=== PATIENT | female | born 1955 | race Caucasian/White ===

== ENCOUNTER 2019-07-25 12:16 | Day surgery (SDC) | payer OTHER ==
[2019-07-24 12:39] VITALS: BMI 47.5
[2019-07-25 15:57] LABS: #Basophils 0.1 thou/uL (0.0-0.2); #Eosinphils 0.2 thou/uL (0.0-0.7); #Lymphocytes 3.1 thou/uL (1.20-3.40); #Monocytes 0.9 thou/uL (0.11-0.59); #Neutrophils 10.3 thou/uL (1.40-6.50); %Basophils 0.3 % (0.0-1.0); %Eosinophils 1.4 % (0.0-10.0); %Lymphocytes 21.5 % (21.0-51.0); %Monocytes 6.5 % (0.0-10.0); %Neutrophils 70.3 % (42.0-75.0); Hemoglobin 10.5 g/dL (12.0-16.0); Mean Corpuscular HGB CONC 33.2 g/dL (32.0-36.0); Mean Corpuscular Hemoglobin 28.1 pg (27.0-31.0); Mean Corpuscular Volume 84.8 fL (78.0-98.0); Mean Platelet Volume 6.4 fL (7.4-10.4); Platelet Count 381 thou/uL (130-400); Red Blood Cell (RBC) Count 3.73 mill/uL (4.20-5.40); White Blood Cell (WBC) Count 14.6 thou/uL (4.8-10.8)
[2019-07-25 16:17] LABS: ALT (SGPT) 16 U/L (8-55); AST (SGOT) 15 U/L (5-34); Alkaline Phosphatase 77 U/L (40-110); Anion Gap 14 mmol/L (10-20); BUN (Urea Nitrogen) 10 mg/dL (9.8-20.1); Bilirubin, Total 0.3 mg/dL (0.2-1.2); Calc. Creatinine Clearance 125 mL/min (70-130); Carbon Dioxide 27 mmol/L (23-31); Chloride 104 mmol/L (98-107); Estimated GFR-MDRD 66; Globulin 2.7 g/dL (2.4-3.5); Glucose 106 mg/dL (80-115); Potassium 3.6 mmol/L (3.5-5.1); Protein, Total 6.7 g/dL (6.0-8.3); Sodium 141 mmol/L (136-145)
--- NOTE | 2019-07-25 17:37 | OP ---
DATE OF PROCEDURE: 07/25/2019 PROCEDURE PERFORMED: Colonoscopy with biopsy. PREPROCEDURE DIAGNOSIS: History of colon polyps, last colonoscopy in 2012 to 2013. POSTPROCEDURE DIAGNOSES: 1. Exam to proximal ascending colon, adequate bowel preparation. 2. Diffusely redundant colon; not able to completely visualize the cecum. 3. Nearly 4 cm long exophytic ulcerated mass in the distal sigmoid colon, biopsied. 4. Small internal hemorrhoids. 5. Otherwise normal colonoscopy. PROCEDURE IN DETAIL: Written informed consent was obtained. Upon completion of the EGD, the patient was repositioned for the colonoscopy. Total intravenous anesthesia was administered by Dr. Yun and associates. The patient was placed in the left lateral decubitus position. A digital rectal exam was performed that was unremarkable. A Pentax video colonoscope was inserted through the anal canal and advanced carefully under direct visualization to the proximal ascending colon. The colon was diffusely redundant. The bowel preparation was adequate with a moderate amount of thick, opaque light brown stool coating most of the colonic mucosa. Much of it was washed away with copious irrigation and suctioning. Due to the colon redundancy, the cecum was not completely examined. Endoscopic findings revealed a nearly 4 cm long exophytic ulcerated friable mass in the distal sigmoid colon from 23 cm down to 19 cm from the anal verge. The appearance was consistent with a sigmoid colon cancer. Multiple biopsies were obtained for histology. No colonic polyps were identified. In the rectum, a retroflexed view demonstrated small nonbleeding internal hemorrhoids. The colon was decompressed as the colonoscope was removed from the patient. She was transferred to the Day Stay surgery area for postprocedure monitoring. There were no immediate complications. RECOMMENDATIONS: 1. Await biopsy results. 2. Ask the patient to call me in 5 to 6 days for biopsy results. 3. Low-residue diet. 4. Surgical consultation. 5. Obtain blood work and CT scan of the abdomen and pelvis. 6. Pending surgery recommendations, we will likely require a repeat colonoscopy in 1 year. Job ID: [id number]
--- NOTE | 2019-07-25 21:44 | OP ---
DATE OF PROCEDURE: 07/25/2019 PROCEDURE PERFORMED: Esophagogastroduodenoscopy with biopsy. PREPROCEDURE DIAGNOSIS: Epigastric pain. POSTPROCEDURE DIAGNOSES: 1. Exam to second portion of duodenum. 2. Normal-appearing esophagus. 3. Mild patchy erythema involving the gastric body and antrum, biopsied. 4. Normal duodenum. 5. No evidence of gastric or duodenal ulcers. PROCEDURE IN DETAIL: Written informed consent was obtained. The patient was brought to the endoscopy suite. Total intravenous anesthesia was administered by Dr. Yun and brian. The patient was placed in the left lateral decubitus position. A bite block was inserted into the mouth. The Pentax video diagnostic gastroscope was introduced into the oral cavity and the esophagus was carefully intubated. The gastroscope was advanced under direct visualization to the second portion of the duodenum. Endoscopic findings revealed a grossly normal appearing esophagus with overall normal motility. The stomach was entered and carefully examined. This included a retroflex view of the cardia and fundus. Mild patchy erythema was noted in the gastric body and antrum and biopsies were obtained for histology. No ulcer was identified. There was no evidence of active bleeding from the gastritis. Examination of the duodenum from the bulb to the second portion was unremarkable. The stomach was decompressed as the endoscope was completely removed from the patient. She was repositioned for the colonoscopy. There were no immediate complications. RECOMMENDATIONS: 1. Await pathology results. 2. Ask the patient to call me in one week for pathology results. 3. Continue omeprazole 40 mg daily. 4. Follow up in GI clinic in 6 to 8 weeks. Job ID: [id number]
== END 2019-07-25 16:15 | disposition home or self-care (01) ==
LOC: SDC 12:16
PROVIDERS: ATTEND Internal Medicine Gastroenterology
PROC: 0DB78ZX Excision of Stomach, Pylorus, Via Natural or Artificial Opening Endoscopic, Diagnostic (ICD-10-PCS; principal; 2019-07-25)
PROC: 0DBN8ZX Excision of Sigmoid Colon, Via Natural or Artificial Opening Endoscopic, Diagnostic (ICD-10-PCS; principal; 2019-07-25)
DX: K92.1 Melena (principal); K64.8 Other hemorrhoids; C18.7 Malignant neoplasm of sigmoid colon; K31.89 Other diseases of stomach and duodenum; K58.9 Irritable bowel syndrome, unspecified; F32.9 Major depressive disorder, single episode, unspecified; E66.01 Morbid (severe) obesity due to excess calories; I10 Essential (primary) hypertension; M19.90 Unspecified osteoarthritis, unspecified site; G35 Multiple sclerosis; Z68.42 Body mass index [BMI] 45.0-49.9, adult; Z86.010 Personal history of colon polyps; Z79.899 Other long term (current) drug therapy; Z91.048 Other nonmedicinal substance allergy status
CPT/HCPCS: 80053; 82378; 85025; 88305; 88312

== ENCOUNTER 2019-07-31 08:03 | Outpatient (CLI) | payer OTHER ==
--- NOTE | 2019-07-31 11:37 | CT ---
CT ABDOMEN AND PELVIS WITH IV CONTRAST: Date: 07/31/19 HISTORY: Recently diagnosed with colonic adenocarcinoma. FINDINGS: There are mild dependent changes in the lung bases. There is decreased attenuation of the liver rené red to the spleen consistent with fatty infiltration. No hepatic mass or abnormal biliary ductal dila tation is seen. The patient is post cholecystectomy. The spleen, pancreas, and adrenal glands are nor mal. There is a 5 mm nonobstructing right renal calculus. There is a 13 mm low density lesion in the super ior pole of the left kidney which does not meet all CT criteria for a simple cyst. There is a heterog eneously enhancing 2.2 cm mass arising from the inferior aspect of the right renal cortex. A 1.0 cm c yst is seen arising from the posterior cortex of the left kidney. A 3.0 mm calculus is seen in the de pendent portion of the urinary bladder on the left. No free air, free fluid, or lymphadenopathy is seen in the abdomen or pelvis. The small bowel loops a re not abnormally dilated. A normal appearing appendix is seen. Uterus is present. There is a 3.0 cm left cystic adnexal mass posteriorly. There are degenerative changes in the spine. IMPRESSION: 1. Fatty liver. 2. Indeterminate right liver masses. These should be evaluated with MRI (with and without IV contras t). 3. Nonobstructing 5 mm right renal calculus. 4. 3.0 cm left adnexal cystic mass. This should be evaluated with pelvic ultrasound. 5. 3.0 mm urinary bladder calculus. CODE T. POS: [facility]
== END 2019-07-31 08:04 | disposition home or self-care (01) ==
LOC: CT 08:03
PROVIDERS: ATTEND Internal Medicine Gastroenterology
DX: D49.0 Neoplasm of unspecified behavior of digestive system (principal); K92.1 Melena; K63.5 Polyp of colon; K76.0 Fatty (change of) liver, not elsewhere classified; N20.0 Calculus of kidney; K76.89 Other specified diseases of liver; N21.0 Calculus in bladder; N83.8 Other noninflammatory disorders of ovary, fallopian tube and broad ligament
CPT/HCPCS: 74177

== ENCOUNTER 2019-08-08 13:29 | Outpatient (CLI) | payer OTHER ==
--- NOTE | 2019-08-08 15:10 | ULT ---
Exam: Transabdominal and endovaginal pelvic ultrasound HISTORY:Follow-up cystic mass noted on previous CT COMPARISON: None Correlation: Abdomen and pelvis CT 07/31/2019 TECHNIQUE: Transabdominal and endovaginal imaging of the pelvis is performed. Ovaries are interrogate d with grayscale, color flow, Doppler imaging and spectral wave form analysis FINDINGS: Uterus: Diminutive uterus. No myometrial masses. Uterus measurin.2 x 2.9 x 4.0 cm. Endometrium: Cannot be assessed. Endometrium diameter: Cannot be assessed due to nonvisualization of the endometrium . Free fluid: None Right ovary: Questionable ovary only appreciated in the transverse dimension. Adjacent bowel limits e valuation. Right ovary measurement: 2.3 cm Left ovary: Mixed echotexture focus in the left adnexa, measuring 2.7 x 1.7 x 3.4 cm. Left ovary measurements: 2.2 x 3.5 x 4.1 cm Ovarian Doppler: Vascular flow is demonstrated to the left ovary. IMPRESSION: 1. Diminutive uterus, limiting evaluation. Endometrial cannot be assessed. 2. Complex echotexture focus in the left ovary, corresponding to recent CT. ST[employer] BU[employer]ER consultation is recom mended. Code T Transcribed Date/Time: 08/08/2019 3:34 PM
== END 2019-08-08 13:30 | disposition home or self-care (01) ==
LOC: SCSULT 13:29
PROVIDERS: ATTEND Surgery
DX: R19.00 Intra-abdominal and pelvic swelling, mass and lump, unspecified site (principal); N85.8 Other specified noninflammatory disorders of uterus
CPT/HCPCS: 76856

== ENCOUNTER 2019-08-11 11:50 | Outpatient (CLI) | payer OTHER ==
[~2019-08-11 11:50] MED LIST: Gadobenate Dimeglumine 529 MG/1 ML (20ML VIAL) ONE
--- NOTE | 2019-08-11 15:21 | MRI ---
MRI ABDOMEN WITH AND WITHOUT CONTRAST UTILIZING RENAL MASS PROTOCOL: INDICATIONS: History of renal masses. COMPARISON: CT abdomen and pelvis with contrast dated 07/31/2019. TECHNIQUE: Multiplanar, multisequence MR images were obtained of the abdomen utilizing renal mass protocol, and 19 mL of MultiHance was utilized for the examination. FINDINGS: Respiratory motion artifact limited the exam. The patient was also having claustrophobia which was no t improved with light sedation. Corresponding to the CT abnormality is a 3.3 x 2.7 cm complex cystic mass involving the lower pole of the right kidney. There is a 1.3 cm cyst involving the superior pole of the right kidney. Small subc entimeter cysts are seen involving the inferior pole of the left kidney. There is fatty infiltration of the liver. The adrenal glands, pancreas and spleen appear within normal limits. No free fluid or enlarged lymph nodes are demonstrated. Bone marrow signal intensity appears within normal limits. IMPRESSION: 1. Enhancing complex cystic mass with thick, irregular mural nodularity is suspicious for neoplasm. 2. Bilateral renal cysts. 3. Fatty liver. POS: [facility]
== END 2019-08-11 11:51 | disposition home or self-care (01) ==
LOC: SCSMRI 11:50
PROVIDERS: ATTEND Surgery
DX: C18.9 Malignant neoplasm of colon, unspecified (principal); N28.89 Other specified disorders of kidney and ureter; K76.0 Fatty (change of) liver, not elsewhere classified; N28.1 Cyst of kidney, acquired
CPT/HCPCS: 74183; A9577

== ENCOUNTER 2019-09-11 06:31 | Outpatient (CLI) | payer OTHER ==
[2019-09-11 15:28] LABS: #Basophils 0.1 thou/uL (0.0-0.2); #Eosinphils 0.3 thou/uL (0.0-0.7); #Lymphocytes 3.7 thou/uL (1.20-3.40); #Monocytes 1.1 thou/uL (0.11-0.59); #Neutrophils 8.3 thou/uL (1.40-6.50); %Basophils 0.7 % (0.0-1.0); %Eosinophils 2.4 % (0.0-10.0); %Lymphocytes 27.2 % (21.0-51.0); %Monocytes 7.9 % (0.0-10.0); %Neutrophils 61.8 % (42.0-75.0); Hemoglobin 12.1 g/dL (12.0-16.0); Mean Corpuscular HGB CONC 31.9 g/dL (32.0-36.0); Mean Corpuscular Hemoglobin 27.5 pg (27.0-31.0); Mean Corpuscular Volume 86.3 fL (78.0-98.0); Platelet Count 449 thou/uL (130-400); RBC Distribution Width 15.7 % (11.5-14.5); Red Blood Cell (RBC) Count 4.39 mill/uL (4.20-5.40); White Blood Cell (WBC) Count 13.4 thou/uL (4.8-10.8)
[2019-09-11 15:35] LABS: Hemoglobin A1c 6.6 % (4.0-6.0)
[2019-09-11 15:54] LABS: ALT (SGPT) 24 U/L (8-55); AST (SGOT) 20 U/L (5-34); Albumin 4.4 g/dL (3.4-4.8); Alkaline Phosphatase 101 U/L (40-110); Anion Gap 18 mmol/L (10-20); BUN (Urea Nitrogen) 10 mg/dL (9.8-20.1); Bilirubin, Total 0.3 mg/dL (0.2-1.2); Calc. Creatinine Clearance 0 mL/min (70-130); Calcium 10.5 mg/dL (7.8-10.44); Carbon Dioxide 27 mmol/L (23-31); Chloride 104 mmol/L (98-107); Estimated GFR-MDRD 67; Globulin 2.6 g/dL (2.4-3.5); Glucose 114 mg/dL (80-115); Potassium 4.2 mmol/L (3.5-5.1); Sodium 145 mmol/L (136-145)
--- NOTE | 2019-09-12 17:57 | EKG ---
Test Reason : Blood Pressure : / mmHG Vent. Rate : 068 BPM Atrial Rate : 068 BPM P-R Int : 178 ms QRS Dur : 092 ms QT Int : 422 ms P-R-T Axes : 019 028 -13 degrees QTc Int : 448 ms Normal sinus rhythm Nonspecific ST abnormality Abnormal ECG No previous ECGs available Confirmed by Leann MEJÍA ([id number]) on 09/12/2019 5:56:49 PM Referred By: ASTRID Confirmed By:Leann MEJÍA
== END 2019-09-11 06:32 | disposition home or self-care (01) ==
LOC: LABBT 06:31
PROVIDERS: ATTEND Surgery
DX: Z01.818 Encounter for other preprocedural examination (principal); C18.9 Malignant neoplasm of colon, unspecified; N28.89 Other specified disorders of kidney and ureter
CPT/HCPCS: 80053; 83036; 85025; 93005; 93010

== ENCOUNTER 2019-09-11 12:00 | Inpatient (IN) | payer OTHER ==
[2019-09-16] MEDS ORDERED: Bupivacaine HCl 0.5%/Epinephrine 1:200,000/PF 30 ml Vial ONE (09:35)
[2019-09-16] MEDS ORDERED: Dexamethasone 20 MG/5 ML VIAL ONE (09:35)
[2019-09-16] MEDS ORDERED: PROPOFOL 200 MG/20 ML VIAL ONE (09:35)
[2019-09-16] MEDS ORDERED: Lidocaine 1% PF 5 ML VIAL ONE (09:35)
[2019-09-16] MEDS ORDERED: Ondansetron PF 4 MG/2 ML Vial ONE (09:35)
[2019-09-16] MEDS ORDERED: Ketorolac Tromethamine 30 MG/ML VIAL ONE (09:35)
[2019-09-16] MEDS ORDERED: Rocuronium Bromide 10 MG/ML (10ML VIAL) ONE (09:35)
[2019-09-16] MEDS ORDERED: Sodium Chloride 0.9% 100 ML ONE (10:34)
[2019-09-16] MEDS ORDERED: cefOXitin 2 GM VIAL ONE (10:34)
[2019-09-16] MEDS ORDERED: Midazolam HCl 2 mg/2 ml Vial ONE ×2 (11:31→12:04)
[2019-09-16] MEDS ORDERED: Fentanyl 100 MCG/2 ML VIAL ONE ×3 (11:31→15:52)
[2019-09-16] MEDS ORDERED: Lidocaine 1% (PF) 30 ML VIAL ONE (11:40)
[2019-09-16] MEDS ORDERED: Promethazine HCl 25 MG/ML VIAL IM PRN ×3 (15:19→16:12)
[2019-09-16] MEDS ORDERED: Promethazine HCl 25 MG/ML VIAL SLOW IVP PRN (15:19)
[2019-09-16] MEDS ORDERED: Ondansetron HCl/PF 4 MG/2 ML Vial IVP PRN (15:19)
[2019-09-16] MEDS ORDERED: Morphine 10 MG/ML VIAL SLOW IVP PRN (15:28)
[2019-09-16] MEDS ORDERED: Morphine 4 MG/ML VIAL SLOW IVP PRN (15:28)
[2019-09-16] MEDS ORDERED: hydrALAZINE 20 MG/ML VIAL SLOW IVP PRN (15:28)
[2019-09-16] MEDS ORDERED: Ondansetron PF 4 MG/2 ML Vial IVP PRN ×2 (15:28→16:12)
[2019-09-16] MEDS ORDERED: Morphine 2 MG/ML SYRINGE SLOW IVP PRN (15:28)
[2019-09-16] MEDS ORDERED: Naloxone HCl 0.4 mg/ml Vial IV PRN (16:12)
[2019-09-16] MEDS ORDERED: fentaNYL Citrate/PF 2,000 MCG in Sodium Chloride 0.9% 60 ML IV PRN (16:12)
[2019-09-16] MEDS ORDERED: diphenhydrAMINE 50 MG/ML VIAL IVP PRN (16:12)
[2019-09-16] MEDS ORDERED: Zolpidem Tartrate 5 MG TAB PO PRN (16:12)
[2019-09-16] MEDS ORDERED: diphenhydrAMINE 50 MG/ML VIAL IM PRN (16:12)
[2019-09-16] MEDS ORDERED: diphenhydrAMINE 25 MG CAP PO PRN (16:12)
[2019-09-16] MEDS ORDERED: Communication Order-Pharmacy FS SCH (16:15)
[2019-09-16] MEDS ORDERED: Acetaminophen 1,000 MG in Premix Bag 1 BAG IVPB SCH (18:00)
[2019-09-16] MEDS ORDERED: CEFAZOLIN 2 GM in Premix Bag 1 BAG IVPB SCH (18:00)
[2019-09-16] MEDS: Sodium Chloride 0.9% 1,000 ML IV SCH ×2 (20:21→21:23)
[2019-09-16] MEDS: Famotidine/PF 20 mg/2ml Vial SLOW IVP SCH (20:24)
[2019-09-16] MEDS: Ketorolac Tromethamine 30 MG/ML VIAL IVP SCH (20:24)
[2019-09-16] MEDS: metroNIDAZOLE 500 MG in Premix Bag 1 BAG IVPB SCH (20:25)
[2019-09-16] MEDS: CEFAZOLIN 2 GM in Premix Bag 1 BAG IVPB SCH (21:19)
[2019-09-16] MEDS: Famotidine 20 MG TAB PO SCH (21:20)
[2019-09-17] MEDS: Ketorolac Tromethamine 30 MG/ML VIAL IVP SCH ×5 (00:31→23:41)
[2019-09-17] MEDS: metroNIDAZOLE 500 MG in Premix Bag 1 BAG IVPB SCH ×2 (00:32→05:41)
[2019-09-17 03:26] VITALS: BMI 44.8
[2019-09-17] MEDS: Acetaminophen 1,000 MG in Premix Bag 1 BAG IVPB SCH ×3 (03:30→15:42)
[2019-09-17] MEDS: CEFAZOLIN 2 GM in Premix Bag 1 BAG IVPB SCH (04:07)
[2019-09-17 05:13] LABS: Anion Gap 11 mmol/L (10-20); BUN (Urea Nitrogen) 12 mg/dL (9.8-20.1); Calc. Creatinine Clearance 112 mL/min (70-130); Calcium 9.1 mg/dL (7.8-10.44); Carbon Dioxide 28 mmol/L (23-31); Chloride 107 mmol/L (98-107); Estimated GFR-MDRD 59; Glucose 137 mg/dL (80-115); Potassium 4.4 mmol/L (3.5-5.1); Sodium 142 mmol/L (136-145)
[2019-09-17 05:39] LABS: Band 6 % (5-11); Hemoglobin 9.7 g/dL (12.0-16.0); Lymphocytes 9 % (21-51); MDiff Complete? YES; Mean Corpuscular HGB CONC 31.5 g/dL (32.0-36.0); Mean Corpuscular Hemoglobin 27.6 pg (27.0-31.0); Mean Corpuscular Volume 87.4 fL (78.0-98.0); Mean Platelet Volume 6.7 fL (7.4-10.4); Monocytes 8 % (0-10); Neutrophil 77 % (42-75); Platelet Count 382 thou/uL (130-400); RBC Distribution Width 15.1 % (11.5-14.5); Red Blood Cell (RBC) Count 3.53 mill/uL (4.20-5.40); White Blood Cell (WBC) Count 21.1 thou/uL (4.8-10.8)
[2019-09-17] MEDS: Sodium Chloride 0.9% 1,000 ML IV SCH ×4 (05:41→23:42)
[2019-09-17] MEDS: Famotidine/PF 20 mg/2ml Vial SLOW IVP SCH ×2 (08:14→20:25)
[2019-09-17] MEDS: Famotidine 20 MG TAB PO SCH ×2 (08:21→20:40)
--- NOTE | 2019-09-17 08:27 | OP ---
DATE OF PROCEDURE: 09/16/2019 PREOPERATIVE DIAGNOSES: Distal sigmoid colon cancer, left ovarian mass. PROCEDURES PERFORMED: Diagnostic laparoscopy, attempted hand-assisted colectomy, conversion to open low anterior resection, and left salpingo-oophorectomy. INDICATIONS: This is a 64-year-old morbidly obese female, who on recent colonoscopy was found to have a distal sigmoid colon cancer. CT scan revealed a mass in the left ovary as well, that was evaluated by [employer], felt to be probable benign, but recommended be removed. FINDINGS: The tumor was located at the peritoneal reflection deep in the pelvis. Her mesentery was extremely thick, so I could not safely divide it or find the ureter, which made it safer to do an open procedure. DESCRIPTION OF PROCEDURE: After informed consent was obtained, the patient was taken to the operating room, given general endotracheal anesthesia. She had undergone a mechanical bowel prep at home. Her abdomen and pelvis were prepped and draped in usual fashion. A supraumbilical incision was performed, and a Veress needle was inserted. Drop test performed. Pneumoperitoneum was created to a volume of 2 L of carbon dioxide. Utilizing a bladeless 5-mm trocar and 0-degree laparoscope, direct visual entry into the abdominal cavity was performed. Pneumoperitoneum was then created to a pressure of 15 mmHg. Under direct vision, a 12 mm port was placed on the right about 2 fingerbreadths above the anterior superior iliac spine. Then, the initial 5 mm port was changed to another 12. Then, two 5s were placed, one in left lower quadrant and one in suprapubic. The patient was placed in steep Trendelenburg position, slightly to the right. The sigmoid colon was grasped and advanced superiorly, and the peritoneum of the mesentery was scored. Then, a very slow tedious dissection performed through the mesentery. The mesentery was extremely thick. I was able to find the inferior mesenteric artery, but it became difficult to see planes and therefore, I was concerned about the left ureter, so I wind up put my hand-assisted port in, hoping that would allow me to do further dissection. I was able to feel the tumor deep down in the pelvis and due to her adipose tissue, decided that the best course of action would be just to open her for safety reasons. A low midline incision was performed and retraction was achieved utilizing Bookwalter retractor. The white line of Toldt was incised and I was able to locate the left ureter. Then, the peritoneum was opened down along the deep in the pelvis circumferentially. The colon was divided utilizing the contour stapler proximally. Then, the mesentery was divided utilizing the LigaSure. The inferior mesenteric artery was divided between clamps and tied with 2-0 silk suture. The anterior and posterior planes were developed using blunt dissection, and the lateral stalks were divided utilizing the LigaSure. Then, the contour stapler was used to divide the rectum at least 2 to 3 cm below the tumor. The specimen was retrieved and opened in the operating room. Gown and gloves were changed. The specimen did reveal complete resection with good distal and proximal normal colon. This was then sent to Pathology for further analysis. Hemostasis was assured. The left ovary and tube, which on CT scan had showed a cystic mass was grasped. I guess perhaps this cyst had ruptured during the procedure, but I wind up going grasping it. The peritoneum was opened. The fallopian tube was divided with the LigaSure. Then, the ovarian vessels were divided with the LigaSure and the specimen sent to Pathology for further analysis. Hemostasis was assured. The proximal colon was found. The staple line was removed, and the EEA anvil inserted and brought out through the side in the mesentery, then closed again with the Contour. Then, went below into the pelvis, the EEA 31 inserted transanally and brought out just below the staple line. It was connected to the anvil and closed, then fired and the donuts checked, they were both intact. Proximal control was obtained utilizing a slightly angled Lenore. A rigid proctoscope was inserted in the distal rectum and the colon was then insufflated with air under water and there was no air leak. The colon decompressed. The scope was removed. Hemostasis assured. The abdomen was thoroughly irrigated. Irrigation fluid was removed. The fascia was closed with a running looped #1 PDS. Subcu was irrigated. Hemostasis was achieved with electrocautery. Interrupted 3-0 Vicryl sutures were placed in the subcu due to her obesity. Skin was closed with skin darinel. Sterile bandage was applied. The patient tolerated the procedure well, transferred to Recovery in good condition. Sponge and needle count verified correct x2. Job ID: [id number]
[2019-09-17] MEDS: Enoxaparin Sodium 40 MG/0.4 ML SYRINGE SC SCH (09:59)
[2019-09-17] MEDS ORDERED: Sodium Chloride 0.9% 500 ML IV SCH (14:45)
--- NOTE | 2019-09-17 14:57 | PRG ---
DATE OF SERVICE: 09/17/2019 SUBJECTIVE: The patient states her pain is well controlled. No nausea or vomiting. She is tolerating ice chips. PHYSICAL EXAMINATION: VITAL SIGNS: On exam, her temperature is 99, pulse 75, and blood pressure 108/53. GENERAL: She is awake and alert, does not appear to be in any distress. LUNGS: Clear. HEART: Regular rate and rhythm. ABDOMEN: Obese, soft. She has a slight about amount of serosanguineous drainage on the inferior aspect of the dressing. LABORATORY DATA: Her white count is 21, H and H of 9 and 30, and platelet count 382. Her electrolytes are fine. Her creatinine is 0.9, glucose 137. Her urine output is only 325 and pretty concentrated. ASSESSMENT: Stable. PLAN: We will give her a little extra fluid, trying to get her up and ambulate. Job ID: [id number]
[2019-09-18] MEDS: Ketorolac Tromethamine 30 MG/ML VIAL IVP SCH ×4 (05:00→23:02)
[2019-09-18] MEDS: Famotidine 20 MG TAB PO SCH ×2 (09:00→20:33)
[2019-09-18] MEDS: Sodium Chloride 0.9% 1,000 ML IV SCH ×2 (09:18→18:44)
[2019-09-18] MEDS: Enoxaparin Sodium 40 MG/0.4 ML SYRINGE SC SCH (11:20)
[2019-09-18] MEDS: Famotidine/PF 20 mg/2ml Vial SLOW IVP SCH ×2 (11:20→19:37)
[2019-09-18] MEDS ORDERED: DC PCA Order Set 1 EACH FS ONE (11:36)
--- NOTE | 2019-09-18 11:48 | PRG ---
DATE OF SERVICE: 09/18/2019 SUBJECTIVE: Followup sigmoid colectomy for colon cancer. Patient is doing well. She had a bowel movement. Pain is controlled. She is tolerating ice chips. No nausea or vomiting. OBJECTIVE: VITAL SIGNS: Her temperature is 97.6, pulse 93, blood pressure 142/65. GENERAL: She looks good. The incision is healing well. Dressing was changed. PLAN: Clear liquid diet, discontinue Soto. Job ID: [id number]
[2019-09-18] MEDS: HYDROcodone/Acetaminophen 10/325 mg Tablet PO PRN ×2 (12:39→23:02)
[2019-09-19] MEDS: Ketorolac Tromethamine 30 MG/ML VIAL IVP SCH ×3 (06:07→17:39)
[2019-09-19] MEDS: Enoxaparin Sodium 40 MG/0.4 ML SYRINGE SC SCH (08:24)
[2019-09-19] MEDS: Famotidine 20 MG TAB PO SCH ×2 (08:24→20:21)
[2019-09-19] MEDS: HYDROcodone/Acetaminophen 10/325 mg Tablet PO PRN ×3 (10:02→22:30)
[2019-09-19] MEDS ORDERED: HYDROcodone/Acetaminophen 10/325 mg Tablet PO SCH (10:15)
[2019-09-19] MEDS: Sodium Chloride 0.9% 1,000 ML IV SCH ×2 (10:27→12:07)
[2019-09-19] MEDS: Famotidine/PF 20 mg/2ml Vial SLOW IVP SCH ×2 (12:02→20:21)
--- NOTE | 2019-09-19 13:20 | PRG ---
DATE OF SERVICE: 09/19/2019 SUBJECTIVE: The patient reports she has been having loose stools. No nausea or vomiting. She is tolerating liquids well. Pain is improving. OBJECTIVE: VITAL SIGNS: Temperature is 99.2, pulse 78, and blood pressure 148/64. GENERAL: She is awake and alert. HEENT: Unremarkable. LUNGS: Clear. HEART: Regular rate and rhythm. ABDOMEN: Obese and soft. The wound is healing well. There is no cellulitis. She has a little bit of serous drainage from the inferior portion of the incision. This was redressed. Pathology came back as a 5 cm grade 2 colon cancer, 6/20 lymph nodes were involved. ASSESSMENT: Node-positive colon cancer. PLAN: Oncology consultation. Advance diet. Home soon. Job ID: [id number]
--- NOTE | 2019-09-19 21:21 | CON ---
DATE OF CONSULTATION: REASON FOR CONSULTATION: Colon cancer. HISTORY OF PRESENT ILLNESS: Ms. Riley is a pleasant 64-year-old female, who was seen by GI for abdominal pain and bleeding. She underwent a colonoscopy in July. She was noted to have a 4 cm long exophytic ulcerated mass in the distal sigmoid colon. It was biopsied and positive for invasive well-differentiated adenocarcinoma. She then underwent CT scan of her abdomen and pelvis. There was no evidence of metastatic liver disease. She did have a right renal mass that was heterogeneously enhancing and measuring 2.2 cm, so she then underwent an abdominal MRI. This confirmed a complex cystic mass with thick irregular mural nodularity. It was suspicious for neoplasm and measuring 3.3 x 2.7 cm. She also had an ovarian mass that looked benign. She saw Dr. Medina for evaluation of her renal mass and decision was made to postpone evaluation until after she had surgery for her colon cancer. She saw Dr. Cabello, who admitted her and performed an open lower anterior sigmoid resection and a left salpingo-oophorectomy. Her ovary mass was benign. Pathology on the colon mass confirmed adenocarcinoma. She did have 6/20 lymph nodes positive for cancer. She has a [id number] stage IIIA colon cancer. We were asked to see the patient regarding treatment options. PAST MEDICAL HISTORY: 1. Irritable bowel syndrome. 2. History of colon polyp with polypectomy. 3. MS. 4. Hypertension. 5. Morbid obesity. PAST SURGICAL HISTORY: 1. Colonoscopy with polypectomy. 2. Orthopedic surgery. 3. Back surgery. ALLERGIES: TO ADHESIVE TAPE AND IODINE CONTRAST. HOME MEDICATIONS: 1. . 2. Tenormin. 3. Baclofen. 4. Celecoxib. 5. Iron. 6. Lutein. 7. Metronidazole. 8. Prilosec. 9. Restasis. 10. Trazodone. 11. Triamterene/hydrochlorothiazide. FAMILY HISTORY: Mother had renal cancer with a nephrectomy. Father had lung cancer and was a smoker. SOCIAL HISTORY: . No children. Lives alone. No alcohol, tobacco, or illicit drug use. REVIEW OF SYSTEMS: A 10-point review of systems is negative. PHYSICAL EXAMINATION: VITAL SIGNS: Temperature 99.2, pulse is 78, respiratory rate 18, blood pressure is 140/64, she is 94% on room air. GENERAL: This is a morbidly obese female, in no acute distress. HEENT: Normocephalic, atraumatic. Pupils are equal and reactive to light. NECK: Supple. CV: Regular rate and rhythm. LUNGS: Clear anterior. Bowel sounds are hyperactive. EXTREMITIES: No clubbing or cyanosis. SKIN: No rash. HEMATOLOGICAL: No petechiae or purpura. NEUROLOGIC: Nonfocal. PSYCHIATRIC: She is alert oriented and appropriate. PERTINENT LABS AND X-RAYS: Current WBCs are 21.1, hemoglobin 9.7, hematocrit 30.9, platelet count is 382,000, 77% neutrophils, 6% bands, 9% lymphocytes. Sodium is 142, potassium 4.4, chloride 107, CO2 is 28, BUN is 12, creatinine 0.97, calcium 9.1, bilirubin 0.3, AST is 20, ALT is 24, alkaline phosphatase is 101, serum total protein is 7, albumin 4.4, globulin 2.6. Preoperative CEA is 1.07. Her MMR shows no loss of expression. ASSESSMENT: 1. [id number] adenocarcinoma of the colon, stage IIIA. 2. Right renal mass worrisome for neoplasm. DISCUSSION: The patient will need chemotherapy for her colon cancer in the outpatient setting. She will need a MediPort at some point. This can be done in the outpatient setting. She has further evaluation of her renal mass with a tissue biopsy. She has seen Dr. Medina for this already. She will follow up in our clinic in the next week or so to establish care and assist with diagnosis of this renal mass. We discussed FOLFOX chemotherapy briefly. Our clinic information was provided and we will be happy to take care of this very pleasant lady. Thank you for the consult. Job ID: [id number]
[2019-09-20] MEDS: Enoxaparin Sodium 40 MG/0.4 ML SYRINGE SC SCH (08:03)
[2019-09-20] MEDS: Famotidine 20 MG TAB PO SCH ×2 (08:04→21:00)
[2019-09-20] MEDS: Famotidine/PF 20 mg/2ml Vial SLOW IVP SCH ×2 (08:23→21:01)
[2019-09-20] MEDS: HYDROcodone/Acetaminophen 10/325 mg Tablet PO PRN ×3 (09:14→21:04)
[2019-09-20] MEDS: Triamterene/Hydrochlorothiazid 75 mg/50 mg Tablet PO SCH (09:29)
[2019-09-20] MEDS ORDERED: Lidocaine 2% w/Epinephrine 1:200K 20 ML VIAL ONE (09:52)
[2019-09-20] MEDS ORDERED: Bupivacaine 0.25% HCL 30 ML VIAL ONE (09:59)
[2019-09-20] MEDS ORDERED: Atenolol 50 MG TAB PO SCH (10:00)
[2019-09-20] MEDS ORDERED: Fentanyl 100 MCG/2 ML VIAL ONE (10:07)
[2019-09-20] MEDS ORDERED: Midazolam HCl 2 mg/2 ml Vial ONE (10:07)
[2019-09-20] MEDS ORDERED: Propofol 500 MG/50 ML VIAL ONE (10:08)
[2019-09-20] MEDS ORDERED: Lidocaine 1% PF 5 ML VIAL ONE (10:29)
[2019-09-20] MEDS ORDERED: PROPOFOL 200 MG/20 ML VIAL ONE (10:29)
[2019-09-20] MEDS ORDERED: PHENYLEPHRINE-NS 100 MCG/ML 10 ML SYRINGE ONE (10:29)
[2019-09-20] MEDS ORDERED: Promethazine HCl 25 MG/ML VIAL SLOW IVP PRN (11:31)
[2019-09-20] MEDS ORDERED: Ondansetron HCl/PF 4 MG/2 ML Vial IVP PRN (11:31)
[2019-09-20] MEDS ORDERED: Promethazine HCl 25 MG/ML VIAL IM PRN (11:31)
--- NOTE | 2019-09-20 11:59 | RAD ---
Portable frontal chest radiograph: 09/20/2019 COMPARISON: None HISTORY: Evaluate chest following Port-A-Cath placement FINDINGS: CT injectable right-sided Port-A-Cath present, distal tip overlying the cavoatrial junction. No pneum othorax or pleural fluid. No focal consolidation or alveolar edema. IMPRESSION: No acute findings.
--- NOTE | 2019-09-20 15:04 | PDOC.OP ---
Operative Note - Operative Note Operative Note: PROCEDURE: Right internal jugular MediPort placement with ultrasound and fluoroscopic guidance DATE OF PROCEDURE: 09/20/2019 SURGEON: Gideon Barnes M.D. PREOPERATIVE DIAGNOSIS: Node positive colon cancer with need for chemotherapy access POSTOPERATIVE DIAGNOSIS: Node positive colon cancer with need for chemotherapy access HISTORY: Patient has been diagnosed with cancer and recently underwent colon resection by Dr. Cabello. Multiple lymph nodes were positive.. Chemotherapy has been recommended and a Mediport has been requested for this. OPERATIVE PROCEDURE IN DETAIL: After informed consent was obtained and appropriate preoperative antibiotics administered, the patient was taken to the operating room and placed in supine position and monitored anesthesia care was administered. The patient was then placed in Trendelenburg position and the patent compressible right internal jugular vein accessed easily on the first attempt under direct ultrasound guidance with excellent flow of dark venous non- pulsatile blood. A wire threaded easily and was confirmed to be in the compressible vein by ultrasound and with the tip in the superior vena cava by fluoroscopy. Additional local anesthesia was infused to the skin and subcutaneous tissues of the right neck and chest. A skin incision was made on the right chest and a subcutaneous pocket developed inferiorly. A Mediport was obtained and confirmed to fit in the subcutaneous pocket. This was secured inferiorly to the pectoralis fascia with a Prolene suture, which was clamped, but not tied. Mediport tubing was then tunneled from the chest to the right IJ access site subcutaneously. The dilator and sheath were then placed over the wire and the dilator and wire removed leaving the sheath in place. The clamped MediPort tubing was tunneled through the sheath, which was then split and removed leaving the MediPort tubing in place. The tubing was adjusted until the tip was confirmed by fluoroscopy to be in the superior vena cava just above the atrium. The tubing was clamped at the skin level and cut and the tubing secured to the port, which was then placed in the subcutaneous pocket. The previously placed suture was secured and two additional sutures were placed to fix the port in place within the pocket. The port was aspirated with the Daniels needle and had excellent flow of dark venous non-pulsatile blood and easily flushed without resistance. The subcutaneous tissues were closed with a running Monocryl suture, following which the skin was closed with a running subcuticular Monocryl suture. Dermabond dressings were placed. The course of the catheter was confirmed by fluoroscopy to be smooth with the tip appropriately located in the superior vena cava. The patient was taken back to recovery in good condition. Estimated blood loss was minimal. There were no complications. There were no specimens.
--- NOTE | 2019-09-20 15:06 | PDOC.GSPN ---
Surgery Progress Note: Subj - Subjective Narrative: Patient was quite anxious this morning about having her Mediport placed. She was tachycardic and hypertensive. On further questioning she is normally on a beta jayna and received at since Sunday. Her heart was regular and EKG showed sinus tachycardia. She underwent Mediport placement without problems. I will advance her diet and restart her home beta jayna. She may be ready for discharge tomorrow. Surgery Progress Note: Obj - Vital signs Vital signs: Vital Signs - Most Recent Temp Pulse Resp BP Pulse Ox 98.1 F 105 H 20 140/63 97 09/20/19 12:35 09/20/19 12:40 09/20/19 12:35 09/20/19 12:44 09/20/19 12:35 Surgery Progress Note: Results - Labs Result Diagrams: 09/17/19 04:34 09/17/19 04:34
[2019-09-21] MEDS: HYDROcodone/Acetaminophen 10/325 mg Tablet PO PRN ×2 (02:22→08:20)
[2019-09-21 08:19] VITALS: TEMP 98.6
[2019-09-21] MEDS: Famotidine 20 MG TAB PO SCH (08:23)
[2019-09-21] MEDS: Triamterene/Hydrochlorothiazid 75 mg/50 mg Tablet PO SCH (08:25)
[2019-09-21] MEDS: Enoxaparin Sodium 40 MG/0.4 ML SYRINGE SC SCH (09:00)
[2019-09-21] MEDS: Famotidine/PF 20 mg/2ml Vial SLOW IVP SCH (09:00)
[2019-09-21] MEDS ORDERED: Atenolol 50 MG TAB PO SCH (09:00)
[2019-09-21 12:56] VITALS: BP 135/62
== END 2019-09-21 14:05 | disposition home or self-care (01) | DRG 330 ==
LOC: SURG A 09-16 09:54 → EDSTATUS 09-16 12:00 → ONC 09-16 18:27
PROVIDERS: ADMIT Surgery; ATTEND Surgery
PROC: 0DJW4ZZ Inspection of Peritoneum, Percutaneous Endoscopic Approach (ICD-10-PCS; principal; 2019-09-16)
PROC: 0DTN0ZZ Resection of Sigmoid Colon, Open Approach (ICD-10-PCS; 2019-09-16)
PROC: 0UT10ZZ Resection of Left Ovary, Open Approach (ICD-10-PCS; 2019-09-16)
PROC: 0UT60ZZ Resection of Left Fallopian Tube, Open Approach (ICD-10-PCS; 2019-09-16)
PROC: 0JH60WZ Insertion of Totally Implantable Vascular Access Device into Chest Subcutaneous Tissue and Fascia, Open Approach (ICD-10-PCS; 2019-09-20)
PROC: B543ZZA Ultrasonography of Right Jugular Veins, Guidance (ICD-10-PCS; 2019-09-20)
PROC: 02HV33Z Insertion of Infusion Device into Superior Vena Cava, Percutaneous Approach (ICD-10-PCS; 2019-09-20)
PROC: B5181ZA Fluoroscopy of Superior Vena Cava using Low Osmolar Contrast, Guidance (ICD-10-PCS; 2019-09-20)
PROC: 0DBP0ZZ Excision of Rectum, Open Approach (ICD-10-PCS; 2019-09-20)
DX: C18.7 Malignant neoplasm of sigmoid colon (principal); Z68.41 Body mass index [BMI] 40.0-44.9, adult; N28.89 Other specified disorders of kidney and ureter; E66.01 Morbid (severe) obesity due to excess calories; I10 Essential (primary) hypertension; G47.30 Sleep apnea, unspecified; E78.5 Hyperlipidemia, unspecified; K21.9 Gastro-esophageal reflux disease without esophagitis; F41.9 Anxiety disorder, unspecified; F32.9 Major depressive disorder, single episode, unspecified; M19.91 Primary osteoarthritis, unspecified site; N83.9 Noninflammatory disorder of ovary, fallopian tube and broad ligament, unspecified; Z91.048 Other nonmedicinal substance allergy status; Z91.041 Radiographic dye allergy status; Z79.899 Other long term (current) drug therapy
CPT/HCPCS: 36415; 36416; 71045; 80048; 85025; 88307; 88309; 93005; 93010; C1788; J0131; J0360; J0670; J0690; J0694; J1100; J1642; J1650; J1885; J2001; J2250; J2405; J2704; J3010; J3490; S0020; S0028

== ENCOUNTER 2019-10-06 09:12 | Outpatient (CLI) | payer OTHER ==
--- NOTE | 2019-10-06 11:45 | CT ---
CT CHEST WITH CONTRAST CLINICAL INDICATION: Colon cancer. COMPARISON: None FINDINGS: Vessels: The aorta is normal in caliber without evidence of an aortic dissection. A right internal ju gular vein Mediport catheter is noted in place with the tip at the level of the right atrium. Lungs: There is dependent bibasilar atelectasis. No pulmonary nodule, mass, or pleural effusion is id entified. Mediastinum: The heart is mildly enlarged. There is no evidence of lymphadenopathy. Few calcified med iastinal lymph nodes are seen likely related to prior granulomatous disease. Thyroid gland: A 1.3 cm hypodense nodule is seen in the left lobe of thyroid gland. Nonemergent thyro id ultrasound is recommended. Osseous structures: Multilevel degenerative changes are seen in the spine. There is fusion of the C6 and C7 vertebral bodies. No suspicious lytic or sclerotic osseous lesions are identified. Chest wall: No abnormality visualized. Upper abdomen: Postcholecystectomy changes are seen. The remainder the visualized upper abdomen demon strates a normal appearance. IMPRESSION: 1. Nodule left lobe of thyroid gland. Nonemergent thyroid ultrasound is recommended for further evalu ation. 2. No CT findings to suggest metastatic disease. 3. Mild cardiomegaly.
== END 2019-10-06 09:13 | disposition home or self-care (01) ==
LOC: CT 09:12
PROVIDERS: ATTEND Internal Medicine Hematology & Oncology
DX: C18.9 Malignant neoplasm of colon, unspecified (principal); I51.7 Cardiomegaly; E04.1 Nontoxic single thyroid nodule
CPT/HCPCS: 71260

== ENCOUNTER 2019-12-23 08:24 | Day surgery (SDC) | payer OTHER ==
[2019-12-22 15:34] VITALS: BMI 47.5
[2019-12-23 08:36] LABS: #Basophils 0.1 thou/uL (0.0-0.2); #Eosinphils 0.3 thou/uL (0.0-0.7); #Monocytes 1.1 thou/uL (0.11-0.59); #Neutrophils 8.3 thou/uL (1.40-6.50); %Basophils 0.7 % (0.0-1.0); %Eosinophils 2.4 % (0.0-10.0); %Lymphocytes 23.5 % (21.0-51.0); %Monocytes 8.9 % (0.0-10.0); %Neutrophils 64.5 % (42.0-75.0); Hemoglobin 13.5 g/dL (12.0-16.0); Mean Corpuscular HGB CONC 33.1 g/dL (32.0-36.0); Mean Corpuscular Hemoglobin 31.5 pg (27.0-31.0); Mean Corpuscular Volume 95.1 fL (78.0-98.0); Platelet Count 252 thou/uL (130-400); RBC Distribution Width 21.2 % (11.5-14.5); Red Blood Cell (RBC) Count 4.28 mill/uL (4.20-5.40); White Blood Cell (WBC) Count 12.8 thou/uL (4.8-10.8)
[2019-12-23 08:41] LABS: PTT 26.2 SEC (22.9-36.1); Prothrombin Time 12.8 SEC (12.0-14.7)
[2019-12-23 08:58] LABS: Anisocytosis SLIGHT = 6-15 cells (100X) (0-5/hpf); MDiff Complete? YES; Platelet Morphology Comment Appears Adequate
[2019-12-23 11:11] VITALS: BP 127/58; TEMP 98.8
--- NOTE | 2019-12-23 13:12 | CT ---
CT-guided right renal mass biopsy Conscious sedation: At least 40 minutes spent with the patient for conscious sedation. FINDINGS: After explaining the procedure and answering all questions, limited CT imaging of the abdom en was performed. Sterile technique, buffered local anesthesia, conscious sedation, CT guidance, and a right lateral approach were used to carefully advance the tip of a 17-gauge trocar needle into the heterogeneous solid mass at the lateral inferior pole of the right kidney. Immediately superficial to the renal cortex, small amount of lidocaine was injected due to patient discomfort. Th is accounts for the fluid near the biopsy bed. Position was confirmed with CT imaging. A total of 5 18-gauge core biopsy specimens were obtained and submitted to Dr. Ng from pathology. Touch prep analysis did not confidently reveal malignant cells. Given the confidence in placement of the needle and the gross appearance of the tissue obtaine d, repositioning the needle was not appropriate. Needle was removed. No evidence of complication. Patient tolerated the procedure well and was eventua lly dismissed in good condition. IMPRESSION : Technically successful CT-guided biopsy right renal mass. Pathology is pending.
== END 2019-12-23 12:25 | disposition home or self-care (01) ==
LOC: CT 08:24
PROVIDERS: ATTEND Urology
PROC: 0TB03ZX Excision of Right Kidney, Percutaneous Approach, Diagnostic (ICD-10-PCS; principal; 2019-12-23)
DX: C64.1 Malignant neoplasm of right kidney, except renal pelvis (principal); I10 Essential (primary) hypertension; K58.9 Irritable bowel syndrome, unspecified; Z79.899 Other long term (current) drug therapy; Z91.041 Radiographic dye allergy status; Z91.048 Other nonmedicinal substance allergy status
CPT/HCPCS: 36415; 50200; 77002; 85025; 85610; 85730; 88305; 88333; 88334; J1642

== ENCOUNTER 2020-02-10 13:41 | Emergency (ER) | payer OTHER ==
--- NOTE | 2020-02-10 14:43 | RAD ---
Exam: Chest one view HISTORY:Dizziness. Patient fell this morning. Comparison: 09/20/2019 FINDINGS: Mediport: Stable right-sided Mediport catheter, terminating in the superior vena cava. Cardiac silhouette: Normal Aorta: Unremarkable Pulmonary vessels: Normal Costophrenic angles: Clear LUNGS: No masses or consolidation. Pneumothorax: None Osseous abnormalities: None IMPRESSION: No acute cardiopulmonary process.
--- NOTE | 2020-02-10 14:44 | CT ---
Exam: Head CT without contrast HISTORY: Status post fall this morning. COMPARISON: none FINDINGS: Hemorrhage: No intraparenchymal hemorrhage or extra-axial hematoma. Brain parenchyma: Cortical thomas-white matter differentiation is preserved. No mass effect or midline shift. Basilar cisterns are patent. Ventricular system: Ventricles and sulci are patent and symmetric. Calvarium: Intact. Sinuses and mastoid air cells: Adequate aeration. IMPRESSION: No acute intracranial posttraumatic sequelae.
[2020-02-10] MEDS ORDERED: Meclizine HCl 25 MG TAB ONE (15:03)
[2020-02-10 15:23] LABS: Hemoglobin 14.8 g/dL (12.0-16.0); Mean Corpuscular HGB CONC 32.1 g/dL (32.0-36.0); Mean Corpuscular Hemoglobin 33.7 pg (27.0-31.0); Mean Platelet Volume 8.1 fL (7.4-10.4); Platelet Count 160 thou/uL (130-400); RBC Distribution Width 18.9 % (11.5-14.5); Red Blood Cell (RBC) Count 4.38 mill/uL (4.20-5.40); White Blood Cell (WBC) Count 5.9 thou/uL (4.8-10.8)
[2020-02-10 15:43] LABS: ALT (SGPT) 36 U/L (8-55); AST (SGOT) 46 U/L (5-34); Albumin 3.8 g/dL (3.4-4.8); Alkaline Phosphatase 103 U/L (40-110); Anion Gap 15 mmol/L (10-20); BUN (Urea Nitrogen) 15 mg/dL (9.8-20.1); Bilirubin, Total 0.7 mg/dL (0.2-1.2); Calc. Creatinine Clearance 0 mL/min (70-130); Calcium 10.8 mg/dL (7.8-10.44); Carbon Dioxide 24 mmol/L (23-31); Chloride 104 mmol/L (98-107); Estimated GFR-MDRD 66; Globulin 3.1 g/dL (2.4-3.5); Glucose 112 mg/dL (80-115); Potassium 3.5 mmol/L (3.5-5.1); Protein, Total 6.9 g/dL (6.0-8.3); Sodium 139 mmol/L (136-145)
[2020-02-10 15:50] LABS: Band 1 % (5-11); Eosinophils 1 % (0-10); Lymphocytes 47 % (21-51); MDiff Complete? YES; Macrocytosis SLIGHT = 6-15 cells (100X) (0-5/hpf); Monocytes 12 % (0-10); Neutrophil 38 % (42-75); Platelet Morphology Comment Appears Adequate
== END 2020-02-10 16:35 | disposition home or self-care (01) ==
LOC: ERS 13:41
DX: R42 Dizziness and giddiness (principal); R51 Headache; Z79.899 Other long term (current) drug therapy
CPT/HCPCS: 70450; 71045; 80053; 84484; 85025; 93005; 96374; J1642

== ENCOUNTER 2020-10-18 08:48 | Outpatient (CLI) | payer MEDICARE ==
--- NOTE | 2020-10-18 10:56 | CT ---
CT chest with IV contrast CT abdomen and pelvis with IV contrast HISTORY: Colon cancer. Restaging. COMPARISON: 10/06/2019 and 07/31/2019. FINDINGS: Lungs are well-inflated. No focal mass. No pleural fluid or mediastinal adenopathy. Calcifi ed mediastinal lymph nodes are consistent with healed granulomatous disease. Right subclavian implanted port remains in place. The lobular slightly heterogeneous cystic mass at t he left thyroid lobe is 1.7 cm x 1.0 cm greatest diameters on today's axial images. Not significantly changed. There are degenerative changes throughout the thoracolumbar spine. Central canal stenosis most pronou nced at the L4-5 level. Gallbladder surgically absent. Multiple cysts arise from the cortex of each kidney, measuring up to 1 .2 cm greatest diameter at the posterior cortex right kidney and 1.0 cm at the posterior cortex left kidney. A 0.3 cm calculus is now present at an inferior pole calyx of the right kidney. Within t he proximal to mid right ureter at the L4 level, there is now an oval calcification that is 1.0 cm length by 0.8 cm greatest width. No significant hydroureteronephrosis. The heterogeneously enhancing solid mass at the inferior pole of the right kidney is now 2.8 cm x 2.7 cm x 2.5 cm greatest diameters, previously 2.2 cm greatest diameter. Postoperative changes of the rectosigmoid junction. Oval well-circumscribed cyst in the left pelvis a t the expected location of the left adnexa is 4.7 cm x 4.2 cm x 3.1 cm greatest diameters, previously 3.0 cm greatest diameter. Multiple sclerotic foci again demonstrated within the sacrum and iliac bones. They are unchanged in s ize and appearance,, measuring up to 1.5 cm greatest length at the posterior aspect of the S2 segment. IMPRESSION : Interval enlargement of the right renal cell carcinoma. No significant obstruction at a mid right ureteral calculus 1.0 cm x 0.8 cm. Additional small nonobst ructing right renal calculus. Enlargement of the left adnexal cyst, 4.7 cm greatest diameter. Sclerotic lesions of the pelvis are stable. Other chronic-type findings are stable.
[2020-10-18] MEDS ORDERED: Iopamidol 370 76% 100 ML VIAL ONE (13:32)
== END 2020-10-18 08:49 | disposition home or self-care (01) ==
LOC: CT 08:48
PROVIDERS: ATTEND Internal Medicine Hematology & Oncology
DX: C18.7 Malignant neoplasm of sigmoid colon (principal); D50.0 Iron deficiency anemia secondary to blood loss (chronic); C64.1 Malignant neoplasm of right kidney, except renal pelvis; N20.0 Calculus of kidney; N94.89 Other specified conditions associated with female genital organs and menstrual cycle; N83.8 Other noninflammatory disorders of ovary, fallopian tube and broad ligament
CPT/HCPCS: 36415; 71260; 74177; 80053; 82378; 82565

== ENCOUNTER 2021-02-17 08:50 | Outpatient (CLI) | payer MEDICARE ==
[2021-02-17 10:47] LABS: Hemoglobin 13.4 g/dL (12.0-15.5); Mean Corpuscular HGB CONC 33.2 g/dL (32.0-36.0); Mean Corpuscular Volume 96.4 fl (81.6-98.3); Mean Platelet Volume 10.1 fl (7.4-10.4); Platelet Count 314 10x3/uL (150-450); RBC Distribution Width 14.3 % (11.5-14.5); Red Blood Cell (RBC) Count 4.19 10x6/uL (3.90-5.03); White Blood Cell (WBC) Count 11.3 10x3/uL (3.5-10.5)
[2021-02-17 10:55] LABS: Bilirubin Neg (Negative); Blood, Urine Negative (Negative); Clarity Clear (Clear); Glucose, Urine (Dipstick) Normal (Negative); Ketone, Urine Negative (Negative); Leukocyte Negative (Negative); Nitrite Negative (Negative); Protein, Urine (Dipstick) Negative (Neg-Trace); Urobilinogen Normal mg/dL (Less than 2)
[2021-02-17 11:10] LABS: Bacteria/HPF 1+ HPF (None Seen); RBC/HPF 0-3 HPF (0-3); WBC/HPF 0-3 HPF (0-3); Yeast-Budding Rare HPF (None Seen)
[2021-02-17 11:12] LABS: Anion Gap 17 mmol/L (10-20); BUN (Urea Nitrogen) 18 mg/dL (9.8-20.1); Calc. Creatinine Clearance 0 mL/min (70-130); Calcium 10.2 mg/dL (7.8-10.44); Carbon Dioxide 28 mmol/L (23-31); Chloride 102 mmol/L (98-107); Glucose 133 mg/dL (80-115); Sodium 143 mmol/L (136-145)
[2021-02-17 18:44] LABS: SARS-CoV-2 PCR by NAA Not Detected (NotDetected)
== END 2021-02-17 08:51 | disposition home or self-care (01) ==
LOC: LABBT 08:50
PROVIDERS: ATTEND Urology
DX: Z01.818 Encounter for other preprocedural examination (principal); Z20.822 Contact with and (suspected) exposure to COVID-19; C64.1 Malignant neoplasm of right kidney, except renal pelvis; N20.2 Calculus of kidney with calculus of ureter
CPT/HCPCS: 80048; 81001; 85027; 87086; 93005; U0003; U0005; 87635; 93010

== ENCOUNTER 2021-02-22 08:00 | Day surgery (SDC) | payer MEDICARE ==
[2021-02-21 09:32] VITALS: BMI 41.1
[2021-02-22] MEDS ORDERED: Levofloxacin 500 mg/D5W 100 ml Premix Bag ONE (08:53)
[2021-02-22] MEDS ORDERED: Fentanyl 100 MCG/2 ML VIAL ONE ×2 (11:12→12:31)
[2021-02-22] MEDS ORDERED: Ioversol 68 % 50 ML VIAL ONE (11:16)
[2021-02-22] MEDS ORDERED: Dexamethasone 20 MG/5 ML VIAL ONE (11:31)
[2021-02-22] MEDS ORDERED: ePHEDrine Sulfate 50 MG/10 ML VIAL ONE (11:31)
[2021-02-22] MEDS ORDERED: PHENYLEPHRINE-NS 100 MCG/ML 10 ML SYRINGE ONE (11:31)
[2021-02-22] MEDS ORDERED: PROPOFOL 200 MG/20 ML VIAL ONE (11:31)
[2021-02-22] MEDS ORDERED: Ondansetron PF 4 MG/2 ML Vial ONE (11:31)
[2021-02-22] MEDS ORDERED: Lidocaine 1% PF 5 ML VIAL ONE (11:31)
[2021-02-22] MEDS ORDERED: Ketorolac Tromethamine 30 MG/ML VIAL ONE (12:25)
[2021-02-22] MEDS ORDERED: Oxybutynin 5 MG TAB ONE (12:25)
[2021-02-28 17:13] LABS: CA Oxalate Dihydrate 20 % (.); CA Oxalate Monohydrate 60 % (.); Color Brown (.); Stone Weight 67 mg (.)
== END 2021-02-22 14:13 | disposition home or self-care (01) ==
LOC: SDC 08:00
PROVIDERS: ATTEND Urology
PROC: 0TC68ZZ Extirpation of Matter from Right Ureter, Via Natural or Artificial Opening Endoscopic (ICD-10-PCS; principal; 2021-02-22)
PROC: 0T768DZ Dilation of Right Ureter with Intraluminal Device, Via Natural or Artificial Opening Endoscopic (ICD-10-PCS; 2021-02-22)
DX: N13.2 Hydronephrosis with renal and ureteral calculous obstruction (principal); I10 Essential (primary) hypertension; K21.9 Gastro-esophageal reflux disease without esophagitis; G35 Multiple sclerosis; M19.90 Unspecified osteoarthritis, unspecified site; G89.29 Other chronic pain; Z79.899 Other long term (current) drug therapy; Z88.6 Allergy status to analgesic agent; Z91.041 Radiographic dye allergy status; Z91.048 Other nonmedicinal substance allergy status
CPT/HCPCS: 74420; 82365; 88300; J1100; J1885; J1956; J2405; J2704; J3010; Q9967

== ENCOUNTER 2021-03-22 09:30 | Inpatient (IN) | payer MEDICARE ==
[2021-04-04 11:48] VITALS: BMI 42.9
[2021-04-05] MEDS ORDERED: Sodium Chloride 0.9% 10 ML ONE ×2 (07:38→07:50)
[2021-04-05] MEDS ORDERED: Midazolam HCl 2 mg/2 ml Vial ONE (08:06)
[2021-04-05] MEDS ORDERED: Fentanyl 250 MCG/5 ML VIAL ONE (08:48)
[2021-04-05] MEDS ORDERED: PROPOFOL 200 MG/20 ML VIAL ONE (09:00)
[2021-04-05] MEDS ORDERED: Lidocaine 1% PF 5 ML VIAL ONE (09:00)
[2021-04-05] MEDS ORDERED: PHENYLEPHRINE-NS 100 MCG/ML 10 ML SYRINGE ONE (09:00)
[2021-04-05] MEDS ORDERED: Ondansetron PF 4 MG/2 ML Vial ONE (09:00)
[2021-04-05] MEDS ORDERED: ePHEDrine Sulfate 50 MG/10 ML VIAL ONE (09:00)
[2021-04-05] MEDS ORDERED: Dexamethasone 20 MG/5 ML VIAL ONE (09:00)
[2021-04-05] MEDS ORDERED: Rocuronium Bromide 10 MG/ML (10ML VIAL) ONE (09:00)
[2021-04-05] MEDS ORDERED: Bupivacaine 0.25% HCL 30 ML VIAL ONE (09:05)
[2021-04-05] MEDS ORDERED: Lidocaine 1% w/Epinephrine 1:100K 20 ML VIAL ONE (09:05)
[2021-04-05] MEDS ORDERED: SUGAMMADEX SODIUM 200 MG/2 ML VIAL ONE (09:33)
[2021-04-05] MEDS ORDERED: HYDROmorphone 2 MG/ML VIAL SLOW IVP PRN (12:32)
[2021-04-05] MEDS ORDERED: Ondansetron HCl/PF 4 MG/2 ML Vial IVP PRN (12:32)
[2021-04-05] MEDS ORDERED: Ketorolac Tromethamine 30 MG/ML VIAL IVP PRN (12:32)
[2021-04-05] MEDS ORDERED: Promethazine HCl 25 MG/ML VIAL IM PRN ×3 (12:32→17:15)
[2021-04-05] MEDS ORDERED: Promethazine HCl 25 MG/ML VIAL IVPB PRN (12:32)
[2021-04-05] MEDS ORDERED: Meperidine HCl/PF 25 MG/ML VIAL SLOW IVP PRN ×2 (12:32)
[2021-04-05] MEDS ORDERED: hydrALAZINE 20 MG/ML VIAL SLOW IVP PRN (12:59)
[2021-04-05] MEDS ORDERED: Ondansetron PF 4 MG/2 ML Vial IVP PRN ×3 (12:59→17:15)
[2021-04-05] MEDS ORDERED: Zolpidem Tartrate 5 MG TAB PO PRN ×3 (12:59→17:15)
[2021-04-05] MEDS ORDERED: diphenhydrAMINE 25 MG CAP PO PRN ×2 (13:15→17:15)
[2021-04-05] MEDS ORDERED: Naloxone HCl 0.4 mg/ml Vial IV PRN ×2 (13:15→17:15)
[2021-04-05] MEDS ORDERED: Famotidine/PF 20 mg/2ml Vial SLOW IVP SCH (13:15)
[2021-04-05] MEDS ORDERED: Fentanyl CADD 100 ML IVPB SCH ×2 (13:15→17:15)
[2021-04-05] MEDS ORDERED: diphenhydrAMINE 50 MG/ML VIAL IM/IV PRN ×2 (13:15→17:15)
[2021-04-05] MEDS ORDERED: Docusate 100 MG CAP PO SCH (13:15)
[2021-04-05] MEDS: Sodium Chloride 0.9% 1,000 ML IV SCH (16:14)
[2021-04-05] MEDS: traZODone HCl 50 MG TAB PO SCH (21:01)
[2021-04-05] MEDS: Famotidine/PF 20 mg/2ml Vial SLOW IVP SCH (21:01)
[2021-04-05] MEDS: Docusate 100 MG CAP PO SCH (21:01)
[2021-04-06] MEDS: Sodium Chloride 0.9% 1,000 ML IV SCH ×3 (01:59→19:18)
[2021-04-06 06:25] LABS: #Lymphocytes 1.8 thou/uL (1.20-3.40); #Monocytes 1.4 thou/uL (0.11-0.59); #Neutrophils 12.9 thou/uL (1.40-6.50); %Basophils 0.2 % (0.0-1.0); %Eosinophils 0.1 % (0.0-10.0); %Lymphocytes 11.1 % (21.0-51.0); %Monocytes 8.6 % (0.0-10.0); Mean Corpuscular HGB CONC 34.2 g/dL (32.0-36.0); Mean Corpuscular Hemoglobin 33.3 pg (27.0-31.0); Mean Corpuscular Volume 97.2 fL (78.0-98.0); Mean Platelet Volume 6.9 fL (7.4-10.4); Platelet Count 244 thou/uL (130-400); RBC Distribution Width 13.4 % (11.5-14.5); Red Blood Cell (RBC) Count 3.01 mill/uL (4.20-5.40); White Blood Cell (WBC) Count 16.1 thou/uL (4.8-10.8)
[2021-04-06 06:47] LABS: Anion Gap 14 mmol/L (10-20); BUN (Urea Nitrogen) 16 mg/dL (9.8-20.1); Calc. Creatinine Clearance 97 mL/min (70-130); Calcium 8.8 mg/dL (7.8-10.44); Carbon Dioxide 23 mmol/L (23-31); Chloride 104 mmol/L (98-107); Glucose 141 mg/dL (80-115); Potassium 4.1 mmol/L (3.5-5.1); Sodium 137 mmol/L (136-145)
[2021-04-06] MEDS ORDERED: HYDROcodone/Acetaminophen 5/325 mg Tablet PO PRN (08:56)
[2021-04-06] MEDS: Atenolol 50 MG TAB PO SCH (09:04)
[2021-04-06] MEDS: Docusate 100 MG CAP PO SCH ×2 (09:04→20:28)
[2021-04-06] MEDS: Famotidine/PF 20 mg/2ml Vial SLOW IVP SCH ×2 (09:05→20:28)
[2021-04-06] MEDS: Ketorolac Tromethamine 30 MG/ML VIAL IVP SCH ×3 (11:54→23:55)
[2021-04-06] MEDS: traZODone HCl 50 MG TAB PO SCH (20:28)
[2021-04-07] MEDS: Sodium Chloride 0.9% 1,000 ML IV SCH (04:03)
[2021-04-07] MEDS: Ketorolac Tromethamine 30 MG/ML VIAL IVP SCH ×2 (05:26→11:53)
[2021-04-07] MEDS: Atenolol 50 MG TAB PO SCH (08:13)
[2021-04-07] MEDS: Docusate 100 MG CAP PO SCH (08:13)
[2021-04-07] MEDS: Famotidine/PF 20 mg/2ml Vial SLOW IVP SCH (08:13)
[2021-04-07 11:30] VITALS: BP 115/73; TEMP 98.4
== END 2021-04-07 12:28 | disposition home or self-care (01) | DRG 657 ==
LOC: EDSTATUS 03-25 09:30 → SURG A 04-05 06:58
PROVIDERS: ADMIT Urology; ATTEND Urology
PROC: 0TB04ZZ Excision of Right Kidney, Percutaneous Endoscopic Approach (ICD-10-PCS; principal; 2021-04-05)
DX: C64.1 Malignant neoplasm of right kidney, except renal pelvis (principal); Z68.41 Body mass index [BMI] 40.0-44.9, adult; I10 Essential (primary) hypertension; G43.909 Migraine, unspecified, not intractable, without status migrainosus; J30.2 Other seasonal allergic rhinitis; D64.9 Anemia, unspecified; K58.9 Irritable bowel syndrome, unspecified; E66.01 Morbid (severe) obesity due to excess calories; M19.90 Unspecified osteoarthritis, unspecified site; F32.9 Major depressive disorder, single episode, unspecified; K21.9 Gastro-esophageal reflux disease without esophagitis; F41.9 Anxiety disorder, unspecified; Z79.899 Other long term (current) drug therapy; Z91.041 Radiographic dye allergy status; Z90.49 Acquired absence of other specified parts of digestive tract
CPT/HCPCS: 36415; 80048; 85025; 86850; 86900; 86901; 88307; J0690; J1100; J1885; J2250; J2405; J2704; J3010; S0020; S0028

== ENCOUNTER 2021-03-31 10:33 | Outpatient (CLI) | payer MEDICARE, OTHER ==
[2021-03-31 11:21] LABS: Hemoglobin 12.3 g/dL (12.0-15.5); Mean Corpuscular HGB CONC 32.9 g/dL (32.0-36.0); Mean Corpuscular Volume 97.4 fl (81.6-98.3); Mean Platelet Volume 9.6 fl (7.4-10.4); Platelet Count 251 10x3/uL (150-450); RBC Distribution Width 14.5 % (11.5-14.5); Red Blood Cell (RBC) Count 3.84 10x6/uL (3.90-5.03); White Blood Cell (WBC) Count 9.5 10x3/uL (3.5-10.5)
[2021-03-31 11:35] LABS: INR-International Normal Ratio 0.9; PTT 24.4 sec (22.0-33.0); Prothrombin Time 10.3 sec (9.5-12.1)
[2021-03-31 11:36] LABS: Anion Gap 13 mmol/L (10-20); BUN (Urea Nitrogen) 22 mg/dL (9.8-20.1); Calc. Creatinine Clearance 0 mL/min (70-130); Calcium 10.2 mg/dL (7.8-10.44); Carbon Dioxide 27 mmol/L (23-31); Chloride 103 mmol/L (98-107); Glucose 134 mg/dL (80-115); Potassium 4.3 mmol/L (3.5-5.1); Sodium 139 mmol/L (136-145)
== END 2021-03-31 10:34 | disposition home or self-care (01) ==
LOC: LABBT 10:33
PROVIDERS: ATTEND Urology
DX: Z01.818 Encounter for other preprocedural examination (principal); C64.1 Malignant neoplasm of right kidney, except renal pelvis; N20.0 Calculus of kidney
CPT/HCPCS: 80048; 85027; 85610; 85730; 86850; 86900; 86901; 93005; 93010

== ENCOUNTER 2021-04-18 09:00 | Outpatient (CLI) | payer MEDICARE ==
[2021-04-18] MEDS ORDERED: Iopamidol 370 76% 100 ML VIAL ONE (10:00)
== END 2021-04-18 09:01 | disposition home or self-care (01) ==
LOC: CT 09:00
PROVIDERS: ATTEND Internal Medicine Hematology & Oncology
DX: C18.7 Malignant neoplasm of sigmoid colon (principal); D50.0 Iron deficiency anemia secondary to blood loss (chronic); N89.8 Other specified noninflammatory disorders of vagina
CPT/HCPCS: 71260; 74177; 82565

== ENCOUNTER 2021-08-09 12:27 | Outpatient (CLI) | payer MEDICARE ==
[2021-08-10 01:01] LABS: SARS-CoV-2 PCR by NAA Not Detected (NotDetected)
== END 2021-08-09 12:28 | disposition home or self-care (01) ==
LOC: LABBT 12:27
PROVIDERS: ATTEND Internal Medicine Gastroenterology
DX: Z01.812 Encounter for preprocedural laboratory examination (principal); D49.0 Neoplasm of unspecified behavior of digestive system; Z20.822 Contact with and (suspected) exposure to COVID-19; Z86.010 Personal history of colon polyps; Z85.038 Personal history of other malignant neoplasm of large intestine
CPT/HCPCS: U0003; U0005

== ENCOUNTER 2021-08-11 11:06 | Day surgery (SDC) | payer MEDICARE ==
[2021-08-10 13:24] VITALS: BMI 42.9
[2021-08-11] MEDS ORDERED: PROPOFOL 200 MG/20 ML VIAL ONE (12:19)
[2021-08-11] MEDS ORDERED: Lidocaine 1% PF 5 ML VIAL ONE (12:19)
[2021-08-11] MEDS ORDERED: PHENYLEPHRINE-NS 100 MCG/ML 10 ML SYRINGE ONE (12:19)
== END 2021-08-11 13:40 | disposition home or self-care (01) ==
LOC: SDC 11:06
PROVIDERS: ATTEND Internal Medicine Gastroenterology
PROC: 0DJD8ZZ Inspection of Lower Intestinal Tract, Via Natural or Artificial Opening Endoscopic (ICD-10-PCS; principal; 2021-08-11)
DX: Z12.11 Encounter for screening for malignant neoplasm of colon (principal); K62.89 Other specified diseases of anus and rectum; K64.8 Other hemorrhoids; Z85.038 Personal history of other malignant neoplasm of large intestine; Z86.010 Personal history of colon polyps; Z79.899 Other long term (current) drug therapy; Z91.041 Radiographic dye allergy status; Z91.048 Other nonmedicinal substance allergy status; Z90.49 Acquired absence of other specified parts of digestive tract
CPT/HCPCS: J2704

== ENCOUNTER 2021-11-15 10:10 | Outpatient (CLI) | payer MEDICARE | END 2021-11-15 10:11 | disposition home or self-care (01) | LOC: CT 10:10 | PROVIDERS: ATTEND Internal Medicine Hematology & Oncology | DX: C18.7 Malignant neoplasm of sigmoid colon (principal); D50.0 Iron deficiency anemia secondary to blood loss (chronic); Z85.528 Personal history of other malignant neoplasm of kidney; Z90.5 Acquired absence of kidney | CPT/HCPCS: 71260; 74177; 82565 ==

== ENCOUNTER 2022-04-19 10:46 | Outpatient (CLI) | payer MEDICARE | END 2022-04-19 10:47 | disposition home or self-care (01) | LOC: BICMAMMO 10:46 | PROVIDERS: ATTEND Family Medicine | DX: Z12.31 Encounter for screening mammogram for malignant neoplasm of breast (principal); Z80.3 Family history of malignant neoplasm of breast; Z85.038 Personal history of other malignant neoplasm of large intestine | CPT/HCPCS: 77063; 77067 ==

== ENCOUNTER 2022-05-10 09:15 | Outpatient (CLI) | payer MEDICARE ==
[2022-05-10] MEDS ORDERED: Iopamidol 370 76% 100 ML VIAL ONE (14:05)
== END 2022-05-10 09:16 | disposition home or self-care (01) ==
LOC: CT 09:15
PROVIDERS: ATTEND Internal Medicine Hematology & Oncology
DX: C18.7 Malignant neoplasm of sigmoid colon (principal); C64.9 Malignant neoplasm of unspecified kidney, except renal pelvis; D50.0 Iron deficiency anemia secondary to blood loss (chronic); N83.8 Other noninflammatory disorders of ovary, fallopian tube and broad ligament; Z90.5 Acquired absence of kidney
CPT/HCPCS: 36415; 71260; 74177; 80053; 82378; Q9967

== ENCOUNTER 2022-10-30 08:45 | Outpatient (CLI) | payer MEDICARE ==
[2022-10-30] MEDS ORDERED: Iopamidol 370 76% 100 ML VIAL ONE (11:12)
== END 2022-10-30 08:46 | disposition home or self-care (01) ==
LOC: CT 08:45
PROVIDERS: ATTEND Internal Medicine Hematology & Oncology
DX: C18.7 Malignant neoplasm of sigmoid colon (principal); K76.0 Fatty (change of) liver, not elsewhere classified; N28.1 Cyst of kidney, acquired; N83.8 Other noninflammatory disorders of ovary, fallopian tube and broad ligament; Z98.890 Other specified postprocedural states; Z90.49 Acquired absence of other specified parts of digestive tract; Z90.5 Acquired absence of kidney
CPT/HCPCS: 71260; 74177; Q9967

== ENCOUNTER 2023-02-07 09:03 | Outpatient (CLI) | payer MEDICARE | END 2023-02-07 09:04 | disposition home or self-care (01) | LOC: SCSMRI 09:03 | PROVIDERS: ATTEND Psychiatry & Neurology Neurology | DX: G35 Multiple sclerosis (principal); M47.814 Spondylosis without myelopathy or radiculopathy, thoracic region; G95.19 Other vascular myelopathies; R90.89 Other abnormal findings on diagnostic imaging of central nervous system; M48.02 Spinal stenosis, cervical region; M47.12 Other spondylosis with myelopathy, cervical region; M47.813 Spondylosis without myelopathy or radiculopathy, cervicothoracic region | CPT/HCPCS: 70553; 72156; 72157 ==